=== PATIENT | female | born 1980 | race Caucasian/White ===

== ENCOUNTER 2022-03-27 10:25 | Outpatient (CLI) | payer OTHER ==
[2022-03-27] MEDS ORDERED: BETAMET ACET-BETAMETH SOD PHOS 6 MG/ML MDV IM SCH (10:45)
== END 2022-03-27 10:50 | disposition home or self-care (01) ==
LOC: FBPOP 10:25
PROVIDERS: ATTEND Obstetrics & Gynecology Obstetrics
DX: O60.03 Preterm labor without delivery, third trimester (principal); Z87.51 Personal history of pre-term labor; Z3A.34 34 weeks gestation of pregnancy; Z88.6 Allergy status to analgesic agent; Z91.040 Latex allergy status; Z88.1 Allergy status to other antibiotic agents; Z88.5 Allergy status to narcotic agent
CPT/HCPCS: 96372; J0702

== ENCOUNTER → 2022-03-28 | Outpatient (CLI) | payer OTHER | LOC: FBPOP 17:40 | PROVIDERS: ATTEND Obstetrics & Gynecology | DX: O60.03 Preterm labor without delivery, third trimester (principal); Z87.51 Personal history of pre-term labor; Z3A.34 34 weeks gestation of pregnancy; Z88.6 Allergy status to analgesic agent; Z88.5 Allergy status to narcotic agent; Z91.040 Latex allergy status; Z88.1 Allergy status to other antibiotic agents | CPT/HCPCS: 96372 ==

== ENCOUNTER 2022-03-31 13:19 | Outpatient (CLI) | payer OTHER ==
[2022-03-31 15:31] VITALS: BP 126/58; PULSE 94; RESP 16; TEMP 97.2
--- NOTE | 2022-04-01 08:04 | P.MSEPDOC ---
Presenting Problems - Arrival Data Date of Arrival on Unit: 03/31/22 Time of Arrival on Unit: 13:15 Mode of Transport: Ambulatory - Complaint OB-Reason for Admission/Chief Complaint: Possible Onset of Labor Comment: contractions off and on for 2 days Medical History - Information : 7 Para: 3 Term: 0 : 3 Abortions: Spontaneous or Elective: 3 Number of Living Children: 3 - Gestational Age Gestational Age by JOSE (wks/days): 35 Weeks and 1 Days - History Complications: Prior Review of Systems - Review of Systems Constitutional: No problems Breast: No problems ENT: No problems Cardiovascular: No problems Respiratory: No problems Gastrointestinal: No problems Genitourinary: No problems Musculoskeletal: No problems Neurological: No problems Skin: No problems Vital Signs - Temperature Temperature: 97.2 F Temperature Source: Temporal Artery Scan - Pulse Right Pulse Rate: 94 Pulse Assessment Method: Automatic Cuff - Respirations Respiratory Rate: 16 Oxygen Delivery Method: Room Air O2 Sat by Pulse Oximetry: 99 - Blood Pressure Right Arm Sitting Blood Pressure: 126/58 Blood Pressure Mean: 80 Blood Pressure Source: Automatic Cuff Medical Screen Scoring - Cervical Exam Dilation (cm): 2.5 Effacement (%): 0 Station: -3 Membranes: Intact - Uterine Contractions Frequency From (mins): 4 Frequency To (mins): 10 Duration From (seconds): 80 Duration To (seconds): 90 Intensity: Mild Resting: Soft to palpation - Assessment - Baby A Baseline FHR: 120 Heart Rate - NICHD Category: Category I (Normal) NST: Reactive Physician Notification - Physician Notified Physician Notified Date: 03/31/22 Physician Notified Time: 14:40 Physician: Barbara Moe Order Received: Yes (discharge with instruction) - Notification Comment Comment: oral hydration, pelvic rest, follow up in office Wed Maternal Triage Index - Prompt/Priority 3 Prompt Priority 3: Yes Criteria Met for Priority 3: irregular contractions, no cervical changed over hour, pt coping well, 35 11/09 Disposition - Disposition OB Disposition: Physician follow up in office, Triage, Written follow up instructions reviewed Discharge Date: 03/31/22 Discharge Time: 14:45 I agree with the RN Medical Screening Exam: Yes Case reviewed; plan agreed upon as documented in EMR&OBIX.: Yes Diagnosis: FALSE LABOR BEFORE 37 COMPLETED WEEKS OF GEST, THIRD TRI
== END 2022-03-31 14:45 ==
LOC: FBPOP 13:19
PROVIDERS: ATTEND Obstetrics & Gynecology
DX: O47.03 False labor before 37 completed weeks of gestation, third trimester (principal); Z3A.35 35 weeks gestation of pregnancy; Z88.6 Allergy status to analgesic agent; Z88.1 Allergy status to other antibiotic agents; Z88.5 Allergy status to narcotic agent; Z91.040 Latex allergy status; Z88.8 Allergy status to other drugs, medicaments and biological substances
CPT/HCPCS: 59025; 99213

== ENCOUNTER 2022-04-03 21:28 | Inpatient (IN) | payer OTHER ==
[2022-04-04] MEDS ORDERED: METHYLERGONOVINE 0.2 MG/ML 1 ML AMP IM PRN (00:04)
[2022-04-04] MEDS ORDERED: LIDOCAINE 0.5% (PF) 5 MG/ML (50 ML SDV) SQ PRN (00:04)
[2022-04-04] MEDS ORDERED: CARBOPROST TROMETHAMINE 250 MCG/ML 1 ML AMP IM PRN (00:04)
[2022-04-04] MEDS ORDERED: OXYTOCIN 10 UNIT/ML 1 ML VIAL IM PRN (00:04)
[2022-04-04] MEDS: LACTATED RINGERS 1,000 ML IV SCH ×4 (00:21→12:18)
[2022-04-04 00:32] LABS: Basophils # (A) 0.1 k/uL (0-0.2); Basophils % (A) 0 %; Eosinophils # (A) 0.1 k/uL (0-0.7); Eosinophils % (A) 1 %; HGB 9.6 gm/dL (11.4-16.0); Hypochromasia Marked; Lymphocytes # (A) 2.9 k/uL (1.0-4.8); Lymphocytes % (A) 17 %; MCH 21.3 pg (25.0-35.0); MCHC 29.2 g/dL (31.0-37.0); Mean Platelet Volume 6.3; Microcytosis Slight; Monocytes # (A) 0.9 k/uL (0-1.0); Monocytes % (A) 6 %; Neutrophils # (A) 12.7 k/uL (1.3-7.7); Neutrophils % (A) 75 %; Platelet Count 358 k/uL (150-450); Poikilocytosis Slight; RBC 4.52 m/uL (3.80-5.40); RDW 15.4 % (11.5-15.5)
[2022-04-04] MEDS ORDERED: ROPIVACAINE 100 MG, fentaNYL (PF). 200 MCG in SODIUM CHLORIDE 0.9% 76 ML EPIDURAL ONE (02:00)
[2022-04-04] MEDS: OXYTOCIN 30 UNITS/500 ML NS 30 UNIT in SALINE 1 500ML.BAG IV SCH ×2 (08:20→17:29)
--- NOTE | 2022-04-04 08:48 | P.HPOB ---
History of Present Illness H&P Date: 04/04/22 Chief Complaint: 35-5/7 weeks, labor with active change The patient is a 41-year-old 7 para 0333 presented to triage with active and uncomfortable contractions at 35-5/7 weeks as established by last menstrual period and confirmed by 27 week ultrasound. She was initially found to be 3 cm dilated in triage but made cervical boiler coverer the course of time despite no significant obvious contraction pattern. She does have a history of 3 previous 36 week deliveries. She additionally has had a number of recent visits to triage and received betamethasone at 24 intervals last week. Her has otherwise been essentially uncomplicated. She did fall into the category of advanced maternal age and did not have trisomy testing. She had initial part of her care performed in [facility] where she resides with her return to [facility] to deliver her baby. care in our office beginning at approximately 27 weeks. Group B strep status is negative. On labor and delivery, all signs reassuring with a category 1 heart rate tracing. Given her change in triage, she is admitted but not actively managed. She continued to make cervical change and had discomfort and an epidural was placed for analgesia. She is not committed to delivery. Obstetrical history: 7 para 0333 with 336 week vaginal deliveries as noted above. She also had 3 early miscarriages. Current statistics are listed in history present illness. EDC of 05/05/2022 was established by last menstrual period and confirmed by 27 week ultrasound. Laboratory workup demonstrates a blood type of B+ with a negative antibody screen. Rubella status is immune. The remainder of laboratory workup was within normal limits. One hour Glucola was normal and group B strep status is negative. Gynecologic history: Unremarkable with no history of any infections to include STDs. Review of Systems Review of systems is confined to history of present illness. Past Medical History Past Medical History: No Reported History History of Any Multi-Drug Resistant Organisms: None Reported Past Surgical History: Appendectomy Additional Past Surgical History / Comment(s): D&C Past Anesthesia/Blood Transfusion Reactions: No Reported Reaction Past Psychological History: No Psychological Hx Reported Smoking Status: Never smoker Past Alcohol Use History: None Reported Past Drug Use History: None Reported - Past Family History Mother Family Medical History: Hypertension Medications and Allergies Home Medications Medication Instructions Recorded Confirmed Type No Known Home Medications 06/20/16 03/31/22 History Allergies Allergy/AdvReac Type Severity Reaction Status Date / Time acetaminophen [From Percocet] Allergy Unknown Verified 04/03/22 21:33 Latex, Natural Rubber Allergy Swelling Verified 04/03/22 21:33 oxycodone [From Percocet] Allergy Unknown Verified 04/03/22 21:33 terbutaline Allergy Anaphylaxis Verified 04/03/22 21:59 doxycycline AdvReac Nausea & Verified 04/03/22 21:33 Vomiting naproxen AdvReac Nausea & Verified 04/03/22 21:33 Vomiting Exam Vital Signs Temp Pulse BP Pulse Ox 04/03/22 21:32 97.9 F 113 H 131/62 98 Intake and Output 04/03/22 04/04/22 04/04/22 22:59 06:59 14:59 Output Total 900 Balance -900 Output: Urine 900 Other: Weight 90.265 kg 90.265 kg In general, this is a moderately obese white female in no acute distress. Her heart has a regular rhythm and rate without murmur. Her lungs clear to auscultation bilaterally in all wilson. Her abdomen is moderately obese, gravid, nondistended, has normal active bowel sounds, soft, nontender, and without any palpable masses aside from uterine fundus. Her extremities are without any cyanosis, clubbing, or edema and are nontender to palpation bilaterally. Digital cervical examination on straights her cervix to be approximately 5 cm dilated, relatively thick, the vertex in presentation at -3 station. It is a relatively floppy multiparous cervix. Results Result Diagrams: 04/04/22 00:16 Abnormal Lab Results - Last 24 Hours (Table) 04/04/22 Range/Units 00:16 WBC 17.0 H (3.8-10.6) k/uL Hgb 9.6 L (11.4-16.0) gm/dL Hct 33.0 L (34.0-46.0) % MCV 73.0 L (80.0-100.0) fL MCH 21.3 L (25.0-35.0) pg MCHC 29.2 L (31.0-37.0) g/dL Neutrophils # 12.7 H (1.3-7.7) k/uL Assessment and Plan (1) Active labor Current Visit: Yes Status: Acute Code(s): O60.10X0 - LABOR W DELIVERY, UNSP TRIMESTER, UNSP SNOMED Code(s): 1456878 (2) 35 to 36 weeks gestation of Current Visit: Yes Status: Acute Code(s): HCZ8010 - SNOMED Code(s): 936655782 Plan: Given her cervical change in triage, she was admitted for observation. She continued to make change and therefore had an epidural catheter placed for analgesia which commits her to labor. This morning her cervix could be deemed anywhere from 4-6 cm the. I will institute Pitocin augmentation and, one possible proceed with artificial rupture of membranes. I would anticipate normal spontaneous vaginal delivery. The patient will continue to have close maternal and surveillance and expectant management will be practiced.
[2022-04-04] MEDS ORDERED: diphenhydrAMINE 50 MG CAP PO PRN (15:54)
[2022-04-04] MEDS ORDERED: HYDROCORTISONE 2.5% RECTAL CREAM 30 GM TUBE RECTAL PRN (15:54)
[2022-04-04] MEDS ORDERED: diphenhydrAMINE 50 MG/ML 1 ML VIAL IVP PRN ×2 (15:54)
[2022-04-04] MEDS ORDERED: SIMETHICONE 80 MG CHEWABLE PO PRN (15:54)
[2022-04-04] MEDS ORDERED: BENZOCAINE/MENTHOL SPRAY 1 GM/SPRAY AEROSOL TOPICAL PRN (15:54)
[2022-04-04] MEDS ORDERED: diphenhydrAMINE 25 MG CAP PO PRN (15:54)
[2022-04-04] MEDS ORDERED: ZOLPIDEM 5 MG TAB PO PRN (15:54)
[2022-04-04] MEDS ORDERED: LANOLIN CREAM 5 GM TUBE TOPICAL PRN (15:54)
[2022-04-04] MEDS ORDERED: OXYTOCIN 30 UNITS/500 ML NS 30 UNIT in SALINE 1 500ML.BAG IV SCH (16:00)
--- NOTE | 2022-04-04 16:00 | P.PROBDLV ---
Vaginal Delivery Note - . Vaginal Delivery Note: The patient is a 41-year-old 7 para 0333 who was admitted through triage last evening at 35-5/7 weeks after having been in triage several times in the last several days complaining of contractions. Her cervix was initially found to be 3 cm and, upon return to triage, found to be 4 cm and then continuing to dilate despite minimal contractions being monitored. She was admitted for observation given her early gestational age. She had received steroids from p revious visits to triage under similar circumstances. During the middle the night, she was reported to be 5-6 cm dilated and in more discomfort and was provided with an epidural catheter which essentially guarantee delivery without discharge. As a result, her cervical check this morning was approximate 5-6 cm and still relatively thick and high. Pitocin augmentation was started and she made some progress through the morning to approximately 6-7 cm, 50% effaced, vertex in presentation at -3 station. Artificial rupture of membranes was carried out for clear fluid. There was a category 1 heart rate tracing throughout labor and delivery. She then continued had Pitocin augmentation and made slow progress then suddenly complained of any urge to push and was found to be complete though still relatively high station of approximately -3. I arrived at that time she began pushing. She pushed over the course of approximately 6 or 7 contractions and ultimately pushed to a normal spontaneous vaginal delivery of a viable 6 lbs. 8 oz. baby boy with Apgars of 8 at 1 minute and 9 at 5 minutes delivered in the direct occiput anterior position. While awaiting placental delivery, the cord lacerated 2 separate times and, after approximately 15 minutes of wait, the decision was made to proceed with manual extraction. I was able to extract the placenta entirely intact and noted that there was a bilobed placenta with the secondary lobe [place] trapped in the fundus of the uterus. As noted, the placenta was grossly normal although bilobed in nature with the cord coming off of the larger portion. There was a grossly normal three-vessel cord inserted relatively centrally on the larger lobe of the placenta. There are no lacerations of the perineum, vagina, or cervix. Estimated blood loss for the case was approximately 250 mL. There were no complications aside from the necessity for manual extraction of placenta. All sponge, instrument, needle counts were correct. The patient tolerated the procedure well. Both mother and infant are resting comfortably in recovery.
[2022-04-04] MEDS: IBUPROFEN 600 MG TAB PO PRN ×2 (16:41→22:11)
[2022-04-04] MEDS: SENNOSIDES-DOCUSATE SODIUM 1 EACH TAB PO SCH (20:16)
[2022-04-05] MEDS: IBUPROFEN 600 MG TAB PO PRN ×4 (03:15→22:44)
[2022-04-05 06:56] LABS: Basophils % (A) 0 %; Eosinophils # (A) 0.1 k/uL (0-0.7); Eosinophils % (A) 1 %; Hypochromasia Marked; Lymphocytes # (A) 2.2 k/uL (1.0-4.8); Lymphocytes % (A) 14 %; MCH 21.6 pg (25.0-35.0); MCHC 30.1 g/dL (31.0-37.0); MCV 71.7 fL (80.0-100.0); Mean Platelet Volume 6.5; Microcytosis Moderate; Monocytes # (A) 0.8 k/uL (0-1.0); Monocytes % (A) 5 %; Neutrophils # (A) 12.3 k/uL (1.3-7.7); Neutrophils % (A) 78 %; Platelet Count 306 k/uL (150-450); Poikilocytosis Slight; RBC 3.35 m/uL (3.80-5.40); WBC 15.7 k/uL (3.8-10.6)
[2022-04-05 07:07] LABS: HGB 7.2 gm/dL (11.4-16.0)
[2022-04-05] MEDS: SENNOSIDES-DOCUSATE SODIUM 1 EACH TAB PO SCH (07:44)
[2022-04-05 09:18] VITALS: RESP 16
--- NOTE | 2022-04-05 09:38 | P.PNOBGVD ---
Subjective - Subjective Patient reports: Reports appetite normal, Reports voiding normally, Reports pain well controlled, Reports ambulating normally : doing well, in NICU (Secondary to gestational age.) Objective - Latest Vital Signs Latest vital signs: Vital Signs Temp Pulse Resp BP Pulse Ox 04/05/22 08:00 97.8 F 86 16 125/73 04/05/22 04:00 98.0 F 80 15 102/63 99 04/05/22 00:00 98.4 F 86 15 113/60 04/04/22 20:00 97.7 F 81 15 119/64 04/04/22 17:41 98.0 F 72 16 125/58 04/04/22 17:12 98.0 F 71 16 125/68 04/04/22 16:42 82 16 120/60 04/04/22 16:27 85 16 118/60 04/04/22 16:12 85 16 118/60 04/04/22 16:00 98.0 F 86 16 128/62 04/04/22 15:57 84 16 139/61 04/04/22 15:42 98.0 F 88 16 153/68 Intake and Output 04/04/22 04/05/22 04/05/22 22:59 06:59 14:59 Intake Total 9.15 Output Total 200 Balance -190.85 Intake: Intake, IV Titration 9.15 Amount Oxytocin 30 Units/500 ml 9.15 Ns 30 unit In Saline 1 500ml.bag @ Per Protocol IV .Q0M [facility] Rx#:[id number] Output: Urine 0 Output, Quantitative 200 Blood Loss Other: # Voids 2 2 - Exam Extremities: Present: normal Abdomen: Present: normal appearance, soft Uterus: Present: normal, firm (The uterine fundus systolic and nontender just below the umbilicus.) - Labs Labs: Abnormal Lab Results - Last 24 Hours (Table) 04/05/22 Range/Units 06:30 WBC 15.7 H (3.8-10.6) k/uL RBC 3.35 L (3.80-5.40) m/uL Hgb 7.2 L D (11.4-16.0) gm/dL Hct 24.0 L (34.0-46.0) % MCV 71.7 L (80.0-100.0) fL MCH 21.6 L (25.0-35.0) pg MCHC 30.1 L (31.0-37.0) g/dL RDW 16.0 H (11.5-15.5) % Neutrophils # 12.3 H (1.3-7.7) k/uL Assessment and Plan (1) Active labor Current Visit: Yes Status: Acute Code(s): O60.10X0 - LABOR W DELIVERY, UNSP TRIMESTER, UNSP SNOMED Code(s): 2531504 (2) 35 to 36 weeks gestation of Current Visit: Yes Status: Acute Code(s): ULH7946 - SNOMED Code(s): 819696308 (3) Normal spontaneous vaginal delivery Current Visit: Yes Status: Acute Code(s): O80 - ENCOUNTER FOR FULL-TERM UNCOMPLICATED DELIVERY SNOMED Code(s): 58496825 Plan: Continue routine care. I would anticipate discharge home tomorrow pending no complications. It is unclear the length of stay for the .
[2022-04-06] MEDS: SENNOSIDES-DOCUSATE SODIUM 1 EACH TAB PO SCH ×2 (04:47→12:56)
[2022-04-06] MEDS: IBUPROFEN 600 MG TAB PO PRN (08:15)
--- NOTE | 2022-04-06 09:27 | P.DS ---
Providers Date of admission: 04/04/22 00:03 Expected date of discharge: 04/06/22 Attending physician: Emiliano Simon Primary care physician: Stated None - Discharge Diagnosis(es) (1) 35 to 36 weeks gestation of Current Visit: Yes Status: Acute (2) Active labor Current Visit: Yes Status: Acute (3) Advanced maternal age (AMA) in Current Visit: Yes Status: Acute (4) Normal spontaneous vaginal delivery Current Visit: Yes Status: Acute Hospital Course: This is a 41-year-old G7 now [id number] that presented to triage with regular painful contractions at 35 and 5 established by a last once her period and confirmed with a 27 week ultrasound. Patient was initially 3 cm in triage but made cervical exchange trouble shooter the course of time despite not having an obvious contraction pattern. Patient does have a history of 3 previous 36 week deliveries. Patient has had been seen numerous times throughout triage and received betamethasone last week. Her has been uncomplicated. Patient is known advanced maternal age and she denied genetic screening. Patient states she had her initial care in [place] where her resides and will return denied states after she delivers. care began in our office at 27 weeks. Patient was admitted to labor and delivery in active labor, patient progressiv gonzalo labor eventually becoming complete and had a normal spontaneous vaginal delivery of a viable male at 1536, weight of 6 lbs. 8 oz., Apgars of 8 and 9 at one and 5 minutes respectively. Infant was taken to the nursery for observation and is currently still admitted to the special care nursery. On this day #2 the patient is doing well. She is ambulating and voiding without difficulty. She is tolerating a regular diet without nausea or vomiting. She is bottle feeding. She denies concerns and understands on this day #2 she will be discharged home. Patient Condition at Discharge: Good Plan - Discharge Summary New Discharge Prescriptions: No Action No Known Home Medications Discharge Medication List No Known Home Medications 06/20/16 [History] Follow up Appointment(s)/Referral(s): Emiliano Simon MD [STAFF PHYSICIAN] - 6 Weeks Patient Instructions/Handouts: Vaginal Delivery (GEN), Vaginal Delivery (DC) Discharge Disposition: HOME SELF-CARE
[2022-04-06 16:17] VITALS: BP 105/65; PULSE 78; TEMP 98.1
== END 2022-04-06 16:05 | disposition home or self-care (01) | DRG 807 ==
LOC: FBPOP 21:28 → 4FBP 04-04 00:03
PROVIDERS: ADMIT Obstetrics & Gynecology; ATTEND Obstetrics & Gynecology
PROC: 10E0XZZ Delivery of Products of Conception, External Approach (ICD-10-PCS; principal; 2022-04-04)
DX: O60.14X0 Preterm labor third trimester with preterm delivery third trimester, not applicable or unspecified (principal); Z37.0 Single live birth; Z3A.36 36 weeks gestation of pregnancy; Z82.49 Family history of ischemic heart disease and other diseases of the circulatory system; O09.523 Supervision of elderly multigravida, third trimester
CPT/HCPCS: 59025; 85025; 86850; 86900; 86901; 88307; 99213